=== PATIENT | male | born 1980 | race Caucasian/White ===

== ENCOUNTER 2017-07-14 02:25 | Emergency (ER) | payer OTHER ==
[2017-07-14] MEDS ORDERED: Promethazine HCl 25 MG/ML VIAL ONE (02:57)
[2017-07-14 03:23] LABS: #Eosinphils 0.1 thou/uL (0.0-0.7); #Lymphocytes 2.3 thou/uL (1.20-3.40); #Monocytes 0.6 thou/uL (0.11-0.59); #Neutrophils 10.6 thou/uL (1.40-6.50); %Basophils 0.2 % (0.0-1.0); %Eosinophils 0.7 % (0.0-10.0); %Lymphocytes 17.1 % (21.0-51.0); %Monocytes 4.1 % (0.0-10.0); %Neutrophils 77.9 % (42.0-75.0); Hemoglobin 16.1 g/dL (14.0-18.0); Mean Corpuscular HGB CONC 35.1 g/dL (32.0-36.0); Mean Corpuscular Hemoglobin 30.9 pg (27.0-31.0); Platelet Count 189 thou/uL (130-400); RBC Distribution Width 12.6 % (11.5-14.5); Red Blood Cell (RBC) Count 5.19 mill/uL (4.70-6.10); White Blood Cell (WBC) Count 13.6 thou/uL (4.8-10.8)
[2017-07-14 03:46] LABS: ALT (SGPT) 16 U/L (8-55); AST (SGOT) 12 U/L (5-34); Albumin 4.6 g/dL (3.5-5.0); Alkaline Phosphatase 74 U/L (40-150); Anion Gap 12 mmol/L (10-20); BUN (Urea Nitrogen) 17 mg/dL (8.9-20.6); Bilirubin, Total 0.4 mg/dL (0.2-1.2); Calc. Creatinine Clearance 0 mL/min (70-130); Calcium 9.7 mg/dL (7.8-10.44); Carbon Dioxide 27 mmol/L (22-29); Chloride 104 mmol/L (98-107); Estimated GFR-MDRD Greater than 90; Globulin 3.2 g/dL (2.4-3.5); Glucose 130 mg/dL (70-105); Potassium 3.5 mmol/L (3.5-5.1); Protein, Total 7.8 g/dL (6.0-8.3); Sodium 139 mmol/L (136-145)
[2017-07-14] MEDS ORDERED: Ketorolac Tromethamine 30 MG/ML VIAL ONE (04:38)
== END 2017-07-14 06:09 | disposition home or self-care (01) ==
LOC: ERS 02:25
DX: R51 Headache (principal); F17.210 Nicotine dependence, cigarettes, uncomplicated; G47.30 Sleep apnea, unspecified
CPT/HCPCS: 80053; 85025; J1885; J2550

== ENCOUNTER 2017-07-14 09:27 | Inpatient (IN) | payer OTHER ==
[2017-07-14 10:09] LABS: #Eosinphils 0.1 thou/uL (0.0-0.7); #Monocytes 0.4 thou/uL (0.11-0.59); %Basophils 0.5 % (0.0-1.0); %Eosinophils 0.5 % (0.0-10.0); %Lymphocytes 19.2 % (21.0-51.0); %Monocytes 3.6 % (0.0-10.0); %Neutrophils 76.3 % (42.0-75.0); Hemoglobin 14.5 g/dL (14.0-18.0); Mean Corpuscular HGB CONC 34.3 g/dL (32.0-36.0); Mean Corpuscular Hemoglobin 30.5 pg (27.0-31.0); Mean Corpuscular Volume 89.1 fl (80.0-94.0); Mean Platelet Volume 8.4 fL (7.4-10.4); Platelet Count 186 thou/uL (130-400); RBC Distribution Width 12.6 % (11.5-14.5); Red Blood Cell (RBC) Count 4.76 mill/uL (4.70-6.10); White Blood Cell (WBC) Count 10.5 thou/uL (4.8-10.8)
[2017-07-14 10:29] LABS: ALT (SGPT) 14 U/L (8-55); AST (SGOT) 11 U/L (5-34); Albumin 4.3 g/dL (3.5-5.0); Alkaline Phosphatase 75 U/L (40-150); Anion Gap 12 mmol/L (10-20); BUN (Urea Nitrogen) 14 mg/dL (8.9-20.6); Bilirubin, Total 0.5 mg/dL (0.2-1.2); Calc. Creatinine Clearance 0 mL/min (70-130); Calcium 9.1 mg/dL (7.8-10.44); Carbon Dioxide 24 mmol/L (22-29); Chloride 104 mmol/L (98-107); Estimated GFR-MDRD Greater than 90; Globulin 2.8 g/dL (2.4-3.5); Glucose 106 mg/dL (70-105); Potassium 3.8 mmol/L (3.5-5.1); Protein, Total 7.1 g/dL (6.0-8.3); Sodium 136 mmol/L (136-145)
[2017-07-14] MEDS ORDERED: Bisacodyl 10 MG SUPP PR PRN (10:59)
[2017-07-14] MEDS ORDERED: Ondansetron HCl/PF 4 MG/2 ML Vial IVP PRN (10:59)
[2017-07-14] MEDS ORDERED: Morphine 4 MG/ML VIAL ONE ×2 (11:19→12:36)
--- NOTE | 2017-07-14 11:28 | CT ---
CT BRAIN NONCONTRAST: DATE: 07/14/2017 TIME: 9:58 a.m. HISTORY: A 36-year-old male with headache and nausea. COMPARISON: None. FINDINGS: In the left posterior fossa, there is an approximately 3.8 x 3 cm, moderately hyperdense mass. It is uncertain whether this is intraaxial or extraaxial, but it is favored to be intraaxial. It causes a large degree of vasogenic edema medial to it, which results in severe extrinsic compression and narr owing of the fourth ventricle. The superior aspect of the fourth ventricle is obstructed, resulting in moderate dilation of the third ventricle and mild to moderate dilation of the right and left later al ventricles. There is diffuse effacement of all cerebral sulcal markings. Furthermore, there is e ffacement of the perimesencephalic cisterns, prepontine cistern, foramina of Luschka, foramen of Mage ndie, and foramen magnum, with bilateral cerebellar tonsillar herniation. The calvarium is intact. No midline shift. IMPRESSION: 1. A 3.8 x 3 cm left posterior fossa mass, probably intraaxial, causing significant mass effect and edema, which obstructs the fourth ventricle, causing obstructive, noncommunicating hydrocephalus, res ulting in generalized increased intracranial pressure and cerebellar tonsillar herniation. Recommend neurosurgery consultation. 2. After neurosurgical consultation, an MRI of the brain with and without contrast should be conside red. Dr. Milotn discussed the findings by telephone with Dr. Eloisa Lopes at 10:06 a.m. on 07/14/2017. CODE MEGA JN R POS: DEJA
[2017-07-14] MEDS ORDERED: Dexamethasone 10 MG/ML VIAL ONE (12:36)
--- NOTE | 2017-07-14 12:37 | MRI ---
MRI BRAIN WITH AND WITHOUT CONTRAST: DATE: 07/14/2017 HISTORY: A 36-year-old male with an intracranial tumor. COMPARISON: No prior MRIs. TECHNIQUE: Multiple sequences obtained in axial, sagittal, and coronal planes; pre and post IV injection of gado linium-based contrast agent. FINDINGS: There is an approximately 4.5 x 3 x 4 cm, well circumscribed, strongly enhancing intraaxial mass in t he left cerebellar hemisphere. There is prominent vasogenic edema at the medial aspect of the left c erebellar hemisphere, involving the cerebellar vermis and left brachium pontis. This causes severe n arrowing and obstruction of the fourth ventricle. The cerebellar tonsils crowd the foramen magnum, p rotruding inferior to the foramen magnum a distance of 20 mm (2 cm). There is effacement of the prep ontine, ambient, and quadrigeminal plate cisterns. The left posterior aspect of the midbrain is defo rmed and compressed. There is moderate dilation of the third ventricle. There is mild to moderate d ilation of the right and left lateral ventricles, especially the temporal horns. There is a mild T2 hyperintense rim around the frontal horns and anterior bodies of the lateral ventricles bilaterally, consistent with mild transependymal migration of CSF. There is diffuse effacement of sulci throughou t the supratentorial region. There is effacement of the subarachnoid spaces between the cerebellar f janusz. Flow voids are grossly maintained in the major arteries of the [place]. There is no evidence of recent or remote hemorrhage. There is no hemorrhage within the posterior fossa tumor. T hat tumor has mixed signal intensity on T2 WI and T1 WI, and intermediate and large areas of mild T1 shortening. There are no other abnormally enhancing lesions. No extraaxial fluid collection. 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 This could either be a primary neoplasm or a solitary brain metastasis. CHARLY Figueroa POS: ADITHYA
[2017-07-14 17:13] VITALS: BMI 29.2
[2017-07-14] MEDS: Dexamethasone 4 mg/ml Vial SLOW IVP SCH ×2 (18:10→22:22)
[2017-07-14] MEDS ORDERED: Pantoprazole 40 MG VIAL IVP SCH (21:00)
[2017-07-14] MEDS ORDERED: Famotidine/PF 20 mg/2ml Vial SLOW IVP SCH (21:00)
--- NOTE | 2017-07-15 00:05 | HP ---
HISTORY OF PRESENT ILLNESS: Mr. Jimenez is a 36-year-old man who presented to the emergency department at [facility] this morning by the way of personal transportation for severe headache. He actually h ad been in the ER previously earlier this morning for the same complaint, but treatment was refractor y and he returned. He ultimately had a CT scan that was performed, that revealed a large 3-4 cm mass in the left cerebellar hemisphere with vasogenic edema causing mass effect in the fourth ventricle w ith associated obstructive hydrocephalus with diffuse ventriculomegaly in the third and bilateral lat eral ventricles. When I have seen him at bedside, he has improvement in his headache symptoms, but s damian has a headache, particularly posteriorly with neck stiffness, but otherwise has minimal complain t. He was previously nauseous, but is no longer so. PAST MEDICAL HISTORY: Significant for sleep apnea. CURRENT MEDICATIONS: None. ALLERGIES: No known drug allergies. PAST SURGICAL HISTORY: None. PHYSICAL EXAMINATION: The patient is alert and oriented x4. His gait is unassessed and I have left him in bed for this purpose to prevent any further nausea or vertigo symptoms as this was his major c omplaint previously. Ejqtac-puev-sofbob and heel slides, he performs with ease. He has no nystagmus at the extremes of gaze. His extraocular movements are intact. Pupils are equal, round, and reacti ve to light. Speech is unimpaired. Upper extremity and lower extremity motor exam are normal. He h as no sensory disturbance that I can discern. Cervical range of motion is intact. ASSESSMENT: Cerebellar mass. 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 Plan at this time will be to start Decadron. He will receive an initia l loading dose of 10 mg per IV and then 4 mg IV q.6 hours. We will also need GI prophylaxis in the f orm of famotidine 20 mg b.i.d. through the IV schedule. We will keep him in the IMCU at least for to night and potentially a second night and plan that as long as he is stable, we will likely transition him from the hospital to the outpatient setting and then worked to set up surgery to resect this mas s in the near future. I discussed this at great length with he and his father at bedside, they were understanding. I answered all questions and has been roughly 45 minutes explaining the pathology pro gnosis, treatment plan, and answering questions pertaining to such, I also discussed this with Dr. Oscar edmonds, he is in agreement.
[2017-07-15] MEDS: Acetaminophen 1,000 MG in Premix Bag 1 BAG IVPB PRN ×2 (01:59→10:17)
[2017-07-15] MEDS: Dexamethasone 4 mg/ml Vial SLOW IVP SCH ×3 (05:11→14:54)
--- NOTE | 2017-07-15 10:16 | PRG ---
DATE OF SERVICE: 07/15/2017 Mr. Jimenez was admitted yesterday due to a severe headache. He had imaging performed in the way of a CT and MRI scan which shows a large contrast enhancing lesion most likely neoplasm within the left ce rebellar hemisphere. There is associated peritumoral edema with effacement of the fourth ventricle a nd a mild degree of obstructive hydrocephalus. He was admitted and placed on high dose steroids and since that time, he has had dramatic improvement overall in his headache. He did have an unsteady ga it that was mild coming in and that has also since resolved. The plan will be to discharge him home today on steroids. There are plans for him to follow up with one of my partners, Dr. Hansen on Thursday to discuss surgical planning most likely to take place ne xt week.
[2017-07-15 11:29] VITALS: BP 128/80; TEMP 98.3
--- NOTE | 2017-07-15 13:11 | CON ---
DATE OF CONSULTATION: 07/15/2017 Mr. Jimenez is a 36-year-old male. He has actually had headaches and neck aches for 4 months. He says he was seen several times at the [place], no diagnostic testing was ordered. On the day of admission, he presented to the emergency room with the same complaints, but stating was also started to have some nausea, vertigo and problems with coordination. He was actually sent home from the emergency department and then returned. On return CT scanning was performed showing a cerebellar mass. He was admitted for stabilization. PAST MEDICAL HISTORY: Reportedly remarkable for sleep apnea. SOCIAL HISTORY: He smokes half pack a day. He is not a daily drinker. He is not a drug user. ALLERGIES: He has no reported drug allergies. FAMILY HISTORY: Negative for lung disease in early age. REVIEW OF SYSTEMS: 10 point system otherwise negative with the exception of the above. PHYSICAL EXAMINATION: GENERAL: Patient complains of head and neck aches x's 4 months. VITAL SIGNS: He is afebrile, heart rate 89, respiratory rate 16, oximetry is 94 % on room air, blood pressure 128/80. HEENT: Pupils were equal. His extraocular movements are intact. He has no facial asymmetry. NECK: Supple. LUNGS: Clear. HEART: Regular rhythm. S1 and S2 are normal. ABDOMEN: Soft and nontender. EXTREMITIES: No clubbing, cyanosis, or edema. LABORATORY DATA: White count 10.5, hemoglobin 14.5, platelets 186. Sodium 136, potassium 3.8, chloride 104, bicarbonate 24, BUN 14, creatinine 0.78. Liver enzymes are normal. IMPRESSION: Brain mass, currently being worked up and treated with steroids. It is unclear whether or not he will have surgery this admission. He is very resistant to the idea of being discharged because he says the [facility] will infinitely delay care if he is discharged. He is of the mindset that he wants to get this taken care of right now if at all possible. I will be happy to follow along with the other physicians caring for Mr. Jimenez at this time. This is a 70 minute consult with greater than 50% of the time spent on the unit with coordination of care. NICKY
== END 2017-07-15 15:12 | disposition home or self-care (01) | DRG 54 ==
LOC: ERS 09:27 → IMCU/EMU 10:30
PROVIDERS: ADMIT Neurological Surgery; ATTEND Neurological Surgery
DX: D43.1 Neoplasm of uncertain behavior of brain, infratentorial (principal); G93.6 Cerebral edema; G91.1 Obstructive hydrocephalus; G93.89 Other specified disorders of brain; G47.30 Sleep apnea, unspecified; F17.210 Nicotine dependence, cigarettes, uncomplicated
CPT/HCPCS: 70450; 70553; 80053; 85025; 96361; 96374; 96375; 96376; 99406; C9113; J0131; J1100; J1885; J2270; J2550; S0028

== ENCOUNTER 2017-07-21 05:35 | Inpatient (IN) | payer OTHER ==
[2017-07-20 11:52] VITALS: BMI 28.1
[2017-07-21] MEDS ORDERED: Thrombin 5000 UNITS/5 ML VIAL ONE (06:17)
[2017-07-21] MEDS ORDERED: Bacitracin Zinc Ointment 30 gm TUBE ONE (06:17)
[2017-07-21] MEDS ORDERED: Sodium Chloride 0.9% 20 ML ONE (06:17)
[2017-07-21] MEDS ORDERED: Lidocaine 0.5%/Epinephrine 1:200,000 50 ml Vial ONE (06:17)
[2017-07-21] MEDS ORDERED: Sodium Chloride 0.9% 10 ML ONE ×3 (06:18→21:03)
[2017-07-21] MEDS ORDERED: CEFAZOLIN/Water 2 GM/20 ML SYRINGE ONE ×2 (06:19→15:26)
[2017-07-21 06:39] LABS: PTT 23.7 SEC (22.9-36.1); Prothrombin Time 13.4 SEC (12.0-14.7)
[2017-07-21] MEDS ORDERED: Fentanyl 100 MCG/2 ML VIAL ONE ×5 (06:46→19:00)
[2017-07-21] MEDS ORDERED: Promethazine HCl 25 MG/ML VIAL ONE (06:46)
[2017-07-21] MEDS ORDERED: Midazolam HCl 2 mg/2 ml Vial ONE ×2 (06:46→13:55)
[2017-07-21] MEDS ORDERED: HYDROmorphone 0.5 MG/0.5 ML SYRINGE ONE ×2 (06:46→13:25)
[2017-07-21] MEDS ORDERED: Rocuronium Bromide 50 MG/5 ML VIAL ONE ×2 (08:58→12:19)
[2017-07-21] MEDS ORDERED: SUGAMMADEX SODIUM 200 MG/2 ML VIAL ONE (10:41)
[2017-07-21] MEDS ORDERED: Labetalol HCl 100 MG/20 ML VIAL SLOW IVP PRN (13:31)
[2017-07-21] MEDS ORDERED: Ondansetron HCl/PF 4 MG/2 ML Vial IVP PRN ×2 (13:31→13:58)
[2017-07-21] MEDS ORDERED: Acetaminophen 650 MG Suppository PR PRN (13:31)
[2017-07-21] MEDS ORDERED: hydrALAZINE 20 MG/ML VIAL SLOW IVP PRN (13:31)
[2017-07-21] MEDS ORDERED: Promethazine HCl 25 MG/ML VIAL SLOW IVP PRN (13:58)
[2017-07-21] MEDS ORDERED: Morphine Sulfate 2 MG/ML SYRINGE SLOW IVP PRN (13:58)
[2017-07-21] MEDS ORDERED: HYDROmorphone 2 MG/ML VIAL SLOW IVP PRN (13:58)
--- NOTE | 2017-07-21 14:22 | OP ---
DATE OF PROCEDURE: 07/21/2017 SURGEON: Irena Hansen M.D. IRRIGATION DISTRICT MANAGER: None. PREOPERATIVE INDICATION: Make diagnosis, prevent neurological deterioration. PREOPERATIVE DIAGNOSES: Left cerebellar tumor, extraaxial. POSTOPERATIVE DIAGNOSIS: Left cerebellar tumor, extraaxial. OPERATIVE PROCEDURE: Placement of a right-sided external ventricular drain, left suboccipital cranio lea, microsurgical resection of left cerebellar tumor. PREOPERATIVE MEDICATION: Ancef 2 grams IV. DRAIN NUMBER: 1 DRAIN TYPE: External ventricular. OPERATIVE DICTATION: The patient was brought to the operating room. General endotracheal anesthesia was induced. Keeping the patient in the transport cart we supported his head with a folded towel, k eeping his nose directly towards the ceiling. Hair was removed from the right side of the scalp ante rior to the coronal suture in line with the mid pupillary line. We planned our incision just anterio r to the coronal suture in the mid pupillary line. We infused local anesthetic and our planned incis ion as well as our exit point for the external ventricular drain. The scalp was sterilely prepped an d draped and we opened with a 10 blade knife. We controlled bleeding with bipolar cautery. We disse cted through the periosteal layer and put a self-retaining retractor in place. Using high speed dril l and a perforating bit, we placed a bur hole in the right frontal bone. We waxed the bone edges whe re we coagulated the dura and then incised the dura. We used bipolar cautery to coagulate back the l eaflets of the dura. We advanced an external ventricular drain through the substance of the right fr ontal lobe into the frontal horn of the right lateral ventricle. There was brisk CSF flow. We tunne led posteriorly through a separate stab incision. We sutured the drain down to the skin. We irrigat ed with bacitracin irrigation and we closed the wound in anatomic layers. We connected the drain to a Murray drainage system and placed a sterile dressing. We then turned our attention to the cranioto my. We placed the patient in the right lateral decubitus position on the operating table. A beanbag was used to keep him in position. An axillary roll was placed. The head was immobilized in Hdz wily headholder and hair was removed behind the left ear with electric clippers. We planned a cur vilinear incision giving us access to the suboccipital area through a retrosigmoid approach. We infu sed local anesthetic under planned incision. The scalp was sterilely prepped and draped. We opened with a 10 blade knife and controlled bleeding with bipolar and monopolar cautery. We used monopolar cautery to dissect through suboccipital musculature. We exposed the occipital bone and the transvers e sigmoid junction. We exposed the mastoid process as well. High speed drill with a perforating bit was brought in the field. We placed a bur hole and then removed a small craniotomy flap. We drille d away the bone anteriorly and superiorly until we visualized the transverse sigmoid junction. We dr illed away bone until we could visualize the posterior aspect of the sigmoid sinus and the inferior a spect of the transverse sinus. We had a good opening behind abnormal dura to open over the cerebellu m. Carefully using a 15 blade to open the dura and brought the operating microscope in the field. Under microscopic magnification using microsurgical techniques we continued our dural opening. We ta cked it anteriorly to the scalp flap. We could visualized abnormal tissue attached to the dura and g rowing into the cerebral hemisphere. We developed a plane around the tissue with bipolar cautery. A large tumor was immobile due to its firm dural attachment. Therefore, we began to amputate it from the dura. We did so one layer at a time until we could visualize the distal deep aspect of the tumor curving away from us, we then amputated the inferior half and then followed by the superior half of the tumor and remove them as separate segments of tissue. Tissue was sent for histopathology. There was a remnant of tumor on the dura as well as 1 lobe of tumor left and this was removed as well. Fi mikey, we could visualize the root of the extraaxial lesion that firmly attached to the dura. We dis sected off the dura and it had eroded completely through it. We removed a section of dura to which i t was attached. The portion near the sigmoid sinus could not be resected safely, but was coagulated back. We irrigated copiously with bacitracin irrigation. There is no obvious tumor left other than the sigmoid sinus attachment. This was coagulated extensively. We then brought a bovine pericardial graft in the field. We cut it to the appropriate size and closed the dura with a running Prolene gutierrez ture. We reinforced our dural closure with DuraSeal tissue sealant and then reapproximated the bone with a titanium wire mesh. The mesh was attached to the suboccipital bones with titanium screws and fashioned to resemble the skull. We then closed the suboccipital musculature in a layered fashion fo llowed by the galea and the galeal extension into the neck, it was a fascial watertight closure. The skin was closed in anatomic layers and we applied a sterile dressing. We wrapped the head and remov ed the patient from the [facility] headholder. He was carefully transferred back to the [facility] rt cart. This was a clean case and no contamination.
[2017-07-21] MEDS: CEFAZOLIN/Water 2 GM/20 ML SYRINGE SLOW IVP SCH ×3 (15:30→22:44)
[2017-07-21] MEDS ORDERED: Glycopyrrolate 0.2 MG/ML 5 ML SYRINGE ONE (16:17)
[2017-07-21] MEDS ORDERED: PHENYLEPHRINE-NS 100 MCG/ML 10 ML SYRINGE ONE (16:17)
[2017-07-21] MEDS ORDERED: PROPOFOL 200 MG/20 ML VIAL ONE (16:17)
[2017-07-21] MEDS ORDERED: Lidocaine 1% PF 5 ML VIAL ONE (16:17)
[2017-07-21] MEDS ORDERED: Dexamethasone 20 MG/5 ML VIAL ONE (16:17)
[2017-07-21] MEDS: Dexamethasone 4 MG TAB PO SCH (18:56)
[2017-07-21] MEDS ORDERED: Morphine 4 MG/ML VIAL ONE (19:59)
[2017-07-21] MEDS: Sodium Chloride 0.9% 1,000 ML IV SCH (20:45)
[2017-07-21] MEDS: Acetaminophen 325 MG TAB PO PRN (21:00)
[2017-07-21] MEDS: Morphine 4 MG/ML VIAL SLOW IVP PRN ×2 (21:11→23:24)
[2017-07-22] MEDS: Dexamethasone 4 MG TAB PO SCH (00:13)
[2017-07-22] MEDS: Morphine 4 MG/ML VIAL SLOW IVP PRN ×9 (02:23→23:27)
[2017-07-22] MEDS: Sodium Chloride 0.9% 1,000 ML IV SCH ×2 (04:30→17:53)
[2017-07-22] MEDS: CEFAZOLIN/Water 2 GM/20 ML SYRINGE SLOW IVP SCH ×3 (06:06→22:30)
[2017-07-22] MEDS: Dexamethasone 1 MG TAB PO SCH ×4 (06:10→23:29)
--- NOTE | 2017-07-22 07:53 | PRG ---
DATE OF SERVICE: 07/22/2017 Mr. Jimenez is 1 day out from suboccipital craniotomy for resection of a cerebellar tumor on the left s amber yesterday. He has an external ventricular drain in place. ICPs have been in the single digits, but mostly in the teens. Occasional ICPs have been in the 20s. Other vital signs have been stable. His neurological examination is quite good. I do not find any dysmetria. Alternating rapid motions are performed rapidly and smoothly, his only 1-2 beats of nystagmus with extreme lateral gaze. He i s a little bit nauseated, but the Zofran is helping, and he is quite hungry. We will advance Mr. Jimenez diet. We will make sure he is on Protonix for GI prophylaxis. We will mob ilize him out of bed today, but I would like to keep him in the ICU because of ICPs in the 20s. I am sure his ICPs have been higher when the tumor was present and that they are actually lower now, but I would like to keep him in the single digits to teens if possible and remove the external ventricula r drain tomorrow. I think he is making great progress.
--- NOTE | 2017-07-22 08:59 | CT ---
PRELIMINARY REPORT/[facility]/EMERGENTY AFTER-HOURS PROCEDURE CT Head Without Intravenous Contrast CLINICAL HISTORY: 36 years old, male; Condition or disease; Other: Craniotomy; Patient HX: F/u craniotomy TECHNIQUE: Axial computed tomography images of the head/brain without intravenous contrast. COMPARISON: Head CT report dated 07/14/2017 FINDINGS: Right frontoparietal ruthie hole with ventriculostomy terminating in the third ventricle. Mild ventricu lar prominence. Small amount of pneumocephalus in the right frontal region Small intraventricular focus of hemorrhage in the third ventricle on image 14. Faint hemorrhage along the tentorium bilaterally suspected Left retrosigmoid occipital craniotomy noted with overlying cranioplasty. Subjacent pneumocephalus an d residual hemorrhage/edema in the left cerebellar hemisphere. Residual edema with mass effect on the fourth ventricle and associated tonsillar ectopia/herniation. Partial effacement of the basal cister ns noted The suprasellar cistern is grossly patent. There is no acute territorial infarction The para nasal sinuses are grossly clear. Fluid/blood in the left mastoid cavity IMPRESSION: Postsurgical changes in the left cerebellum as described with residual edema and partial effacement o f the fourth ventricle. Mild hydrocephalus and tonsillar herniation as described. Comparison with amita or images of the helpful Thank you for allowing us to participate in the care of your patient. Dictated and Authenticated by: Alonso Shah MD 07/22/2017 5:39 AM Central Time ([place] & [place]) FINAL REPORT CT BRAIN WITHOUT CONTRAST: I agree with the preliminary report given by [employer]. POS: ADITHYA
--- NOTE | 2017-07-22 09:49 | CON ---
DATE OF CONSULTATION: 07/22/2017 REASON FOR CONSULTATION: ICU stay. HISTORY OF PRESENT ILLNESS: Mr. Jimenez is a 36-year-old who underwent a resection of a cerebellar men ingioma yesterday. He has a drain in place in the posterior aspect of his skull. He is remaining in the ICU until that drain is removed. Currently, he is doing well and has no problems including no h eadache, no vertigo, no difficulty with coordination. No neurologic deficit. PAST MEDICAL HISTORY: Obstructive sleep apnea. PAST SURGICAL HISTORY: None up until yesterday. SOCIAL HISTORY: Half pack per day smoker. ALLERGIES: None. FAMILY MEDICAL HISTORY: Unremarkable. REVIEW OF SYSTEMS: Otherwise, negative. PHYSICAL EXAMINATION: VITAL SIGNS: Temperature 98.5, pulse 54, blood pressure 133/70. Intake 1790, output 1770, O2 sat 92 %. HEENT: Unremarkable except for the drain in place. NECK: No JVD. LUNGS: Clear. CARDIOVASCULAR: S1, S2 regular. ABDOMEN: Soft. EXTREMITIES: No edema. NEUROLOGIC: No deficits. ASSESSMENT: 1. Status post craniotomy for resection of cerebellar mass. 2. Obstructive sleep apnea. PLAN: Continue CPAP at night if he can wear without interfering with the drain. We will follow jet e he is in the ICU. I will notify Dr. Garber of the patient's admission.
[2017-07-22] MEDS: Acetaminophen 325 MG TAB PO PRN (13:20)
[2017-07-22 14:03] VITALS: BP 142/85
[2017-07-23] MEDS ORDERED: Dexamethasone 1 MG TAB PO SCH (06:00)
[2017-07-23] MEDS ORDERED: Acetaminophen/Codeine 30-300mg Tablet PO PRN (07:07)
[2017-07-23 07:14] VITALS: TEMP 98.4
[2017-07-23] MEDS: CEFAZOLIN/Water 2 GM/20 ML SYRINGE SLOW IVP SCH (07:16)
[2017-07-23] MEDS: Acetaminophen 325 MG TAB PO PRN (08:28)
[2017-07-23] MEDS: Sodium Chloride 0.9% 1,000 ML IV SCH (08:33)
--- NOTE | 2017-07-23 09:30 | PRG ---
DATE OF SERVICE: 07/23/2017 SUBJECTIVE: Mr. Jimenez is 2 days out from suboccipital craniotomy for resection of a cerebellar menin gioma. He is doing quite well since surgery. His ICPs have been mostly in the teens. Multiple read ings were in the single digits and one reading in the last 24 hours is over 20. Drain did not need t o be opened here. This morning, Mr. Jimenez' neurological examination is stable. There is 1.5 beats of end gaze nystagmu s and far lateral gaze to the left, but no other cerebellar findings. His motor and sensory examinat ion is normal. We removed the drain without complication this morning. Staple was placed. He does not need any mor e dressings on the head. He can shower starting tomorrow, but should not aggressively scrub his inci sions. We will make plans for discharge today if he is safe for all his activities of daily living. We will make sure he has medications that he needs to control pain and taper off his Decadron. Perry blas will be in 2 weeks in our office.
--- NOTE | 2017-07-23 12:35 | DIS ---
DATE OF SERVICE: 07/23/2017 REASON FOR ADMISSION: Left cerebellar tumor. HOSPITAL COURSE: Mr. Shakeel Jimenez was taken to the operating room on the morning of his admission. We placed an external ventricular drain and removed a left cerebellar tumor. He came through surger y well with no new neurological deficits. We watched him in the ICU for 36 hours with external ventr icular drain in place. His ICP never spiked higher than 24 and it was only in the 20s for a few of t he readings during the 36 hours. We removed the drain without complication. We observed him for a f ew more hours and discharged home in good neurological condition. At the time of discharge, he is am bulatory, tolerating a general diet and performing all activities of daily living safely and independ ently. Follow up arrangements have been made. Home going activity restrictions have been outlined. Wound c are has been discussed. We will see him in 2 weeks' time. Prescriptions have been arranged.
[2017-07-24] MEDS ORDERED: Dexamethasone 1 MG TAB PO SCH (06:00)
[2017-07-25] MEDS ORDERED: Dexamethasone 1 MG TAB PO SCH (09:00)
== END 2017-07-23 09:21 | disposition home or self-care (01) | DRG 27 ==
LOC: SURG A 05:35 → CCU 20:53
PROVIDERS: ADMIT Neurological Surgery; ATTEND Neurological Surgery
PROC: 00BC0ZX Excision of Cerebellum, Open Approach, Diagnostic (ICD-10-PCS; principal; 2017-07-21)
DX: C71.6 Malignant neoplasm of cerebellum (principal); F17.210 Nicotine dependence, cigarettes, uncomplicated
CPT/HCPCS: 36415; 70450; 85610; 85730; 88307; 88325; 88331; 88341; 88342; 88360; A4216; C1713; G8978-GP-CJ; G8979-GP-CH; G8987-GO-CJ; G8988-GO-CH; J1100; J1170; J2001; J2250; J2270; J2550; J2704; J3010; J3490; J8540

== ENCOUNTER 2017-11-02 12:29 | Outpatient (CLI) | payer OTHER ==
--- NOTE | 2017-11-02 16:55 | MRI ---
MRI BRAIN WITH AND WITHOUT CONTRAST: DATE: 11/02/17 HISTORY: 37-year-old male status post brain tumor resection. 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 COMPARISON: 07/14/17. TECHNIQUE: Multiple sequences obtained in axial, sagittal, and coronal planes; pre and post IV injection of gado linium-based contrast agent: 18 mL of Multihance. FINDINGS: The left posterior fossa neoplastic tumor mass has been surgically resected via left occipital cranio lea. There is postsurgical mesh bridging the left occipital craniotomy defect, deep to which there h as been interval removal of the tumor. It was originally thought that the tumor was intra-axial, but was apparently an extra-axial tumor instead, since the pathology is result is hemangiopericytoma. The re has been significant interval improvement or resolution of the previously demonstrated vasogenic e debby in the left cerebellum and vermis. There is milder degree of T2 hyperintense intra-axial signal at the lateral peripheral aspect of the left cerebellar hemisphere where there is encephalomalacia an d gliosis, with associated lace-like enhancement. The previously demonstrated mass effect, and extrin sic compression and narrowing of the fourth ventricle, have resolved. All of the ventricles are now n ormal in size and configuration. There is no longer transependymal migration of CSF. There is a new f inding of a thin linear track of T2 intense signal in the right forrest radiata and centrum semiovale, representing track from a ventriculostomy catheter which was demonstrated on the CT of 07/22/17, trave rsing by the right lateral ventricle, with distal tip within the dilated third ventricle. (Unlike on CT, it is typically difficult on MRI to distinguish a existing ventriculostomy catheter from the sarah ining tract of one that has been removed). There is no other intra-axial signal abnormality. There is blood flow (no thrombosis) of the dural venous sinuses, including the left transverse sinus and sigmoid sinus. IMPRESSION: 1. Status post surgical resection of the left posterior fossa neoplastic tumor mass via left occ ipital craniotomy. 2. Postsurgical changes in the lateral aspect of the left cerebral hemisphere. No definitive brady dence of residual tumor; the enhancement in the surgical bed could represent postsurgical changes. Ho wever, followup is recommended. 3. Interval resolution of the previously demonstrated mass effect and obstructive hydrocephalus. CHARLY R POS: ADITHYA
[2017-11-02] MEDS ORDERED: Gadobenate Dimeglumine 529 MG/1 ML (20ML VIAL) ONE (17:03)
== END 2017-11-02 12:30 | disposition home or self-care (01) ==
LOC: SCSMRI 12:29
PROVIDERS: ATTEND Neurological Surgery
DX: D32.9 Benign neoplasm of meninges, unspecified (principal); Z98.890 Other specified postprocedural states
CPT/HCPCS: 70553; A9579

== ENCOUNTER 2017-12-30 07:29 | Outpatient (CLI) | payer OTHER ==
--- NOTE | 2017-12-30 11:06 | MRI ---
MRI BRAIN WITH AND WITHOUT CONTRAST Technique: Multiplanar, multisequence MRI images were obtained of the brain. Post contrast images obt ained with the administration of 17 cc MultiHance IV. Indications: Follow up brain surgery. Brain lab protocol. 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 Comparison: MRI 11-02-17 FINDINGS: Defect in the left lateral cerebellum is again noted. A left occipital craniotomy defect is again not ed. Operative defect is stable from prior exam. Some minimal peripheral enhancement at the operative bed is unchanged from 11-02-17 exam. No new enhancement. Brain is otherwise unchanged and unremarkable. IMPRESSION: Stable MRI brain findings when compared with exam of 11-02-17. No evidence of recurrence at the operat monse site in the left posterior fossa. POS: [facility]
[2017-12-30] MEDS ORDERED: Gadobenate Dimeglumine 529 MG/1 ML (20ML VIAL) ONE (12:59)
== END 2017-12-30 07:30 | disposition home or self-care (01) ==
LOC: MRI 07:29
PROVIDERS: ATTEND Neurological Surgery
DX: D32.9 Benign neoplasm of meninges, unspecified (principal)
CPT/HCPCS: 70553; A9579